=== PATIENT | female | born 1985 | race Caucasian/White ===

== ENCOUNTER 2017-05-30 14:00 | Emergency (ER) | payer BC ==
--- NOTE | 2017-05-30 14:42 | UC ---
Throat Pain/Nasal Zacarias HPI - HPI Summary HPI Summary: son with strep throat she has had nausea and sore thoat that is getting worse for 3 days - History of Current Complaint Chief Complaint: UCRespiratory Stated Complaint: SORE THROAT Time Seen by Provider: 05/30/17 14:31 Hx Obtained From: Patient Hx Last Menstrual Period: Discontinued Depo 10/2015 ?: No Onset/Duration: Sudden Onset, Lasting Days - 3, Still Present Severity: Moderate Pain Intensity: 6 Pain Scale Used: 0-10 Numeric Cough: None - Allergies/Home Medications Allergies/Adverse Reactions: Allergies Allergy/AdvReac Type Severity Reaction Status Date / Time Penicillins Allergy Rash Verified 05/30/17 14:51 Home Medications: Home Medications Ibuprofen TAB* [Advil TAB*] 600 mg PO Q6H PRN 05/30/17 [History Confirmed ] Levothyroxine TAB* [Synthroid TAB*] 25 mcg PO 0800 05/30/17 [History Confirmed 05/30/17] PMH/Surg Hx/FS Hx/Imm Hx Previously Healthy: Yes - Surgical History Surgical History: Yes Surgery Procedure, Year, and Place: C-Sections, 2008 2010, [place] - Family History Known Family History: Positive: None - Social History Occupation: Employed Full-time Lives: With Family Alcohol Use: Occasionally Substance Use Type: None Smoking Status (MU): Never Smoked Tobacco - Immunization History Most Recent Influenza Vaccination: December 2015 Review of Systems Constitutional: Chills, Fatigue Skin: Negative Eyes: Negative ENT: Sore Throat Respiratory: Negative Cardiovascular: Negative Gastrointestinal: Negative Genitourinary: Negative Motor: Negative Neurovascular: Negative Musculoskeletal: Negative Neurological: Negative Psychological: Negative All Other Systems Reviewed And Are Negative: Yes Physical Exam Triage Information Reviewed: Yes Appearance: Well-Appearing, No Pain Distress, Well-Nourished Vital Signs Reviewed: Yes Eye Exam: Normal Eyes: Positive: Conjunctiva Clear ENT Exam: Normal ENT: Positive: Normal ENT inspection, Hearing grossly normal, Pharyngeal erythema, TMs normal, Tonsillar swelling, Tonsillar exudate. Negative: Nasal congestion, Nasal drainage, Trismus, Muffled/hoarse voice Dental Exam: Normal Neck exam: Normal Neck: Positive: Supple, Nontender, No Lymphadenopathy Respiratory Exam: Normal Respiratory: Positive: Chest non-tender, Lungs clear, Normal breath sounds, No respiratory distress, No accessory muscle use Cardiovascular Exam: Normal Cardiovascular: Positive: RRR, No Murmur, Pulses Normal, Brisk Capillary Refill Musculoskeletal Exam: Normal Musculoskeletal: Positive: Strength Intact, ROM Intact, No Edema Neurological Exam: Normal Neurological: Positive: Alert, Muscle Tone Normal Psychological Exam: Normal Skin Exam: Normal Throat Pain/Nasal Course/Dx - Course Assessment/Plan: Zithromax,tylenol, ibuprofen increase fluids follow with pcp - Differential Dx/Diagnosis Differential Diagnosis/HQI/PQRI: Peritonsillar Abscess, Pharyngitis, Sinusitis, URI Provider Diagnoses: Strep pharyngitis Discharge - Discharge Plan Condition: Stable Disposition: HOME Prescriptions: Azithromycin TAB* [Zithromax TAB (Z-ADAM) 250 mg #6 tabs] 2 tab PO DAILY #10 Patient Education Materials: Azithromycin (By mouth), Strep Throat (ED) Referrals: Gertrude Falcon MD [Primary Care Provider] - If Needed
[2017-05-30 14:57] VITALS: BP 105/59
== END 2017-05-30 15:00 | disposition home or self-care (01) ==
LOC: UCCORT 14:00
DX: J02.0 Streptococcal pharyngitis (principal); Z88.0 Allergy status to penicillin
CPT/HCPCS: 99212; G0463

== ENCOUNTER 2018-09-01 14:45 | Inpatient (IN) | payer BC ==
--- OUTSIDE RECORDS SUMMARY | 2018-09-01 15:01 | XMS REPORT ---
:1985 External Reference #:[id number] Author Organization [employer] Address [address] [place] [address] Phone [phone] Care Team Providers Name Role Phone Alisa Jones NP Primary Care Physician Unavailable Payers Type Date Identification Numbers Payment Provider Subscriber Health Maintenance Policy Number: [facility] Ana Aldana [facility] (O) [id number] PayID: [id number] [place] [id number] Problems Date Description Provider Status Onset: 08/18/2018 Open wound of knee and/or leg and/or Vero York M.D. Active ankle Family History Date Family Member(s) Problem(s) Comments General Hypertension General Cancer Social History Type Date Description Comments Lives With Spouse Occupation [employer] Use Currently consumes alcohol 1-2 drinks/week Smoking Patient has never smoked Exercise Type/Frequency Exercises regularly Allergies, Adverse Reactions, Alerts Date Description Reaction Status Severity Comments 08/18/2018 Penicillin active Medications Medication Date Status Form Strength Qnty SIG Indications Ordering Provider Levothyroxine Active Tablets 50mcg 1 by Unknown Sodium 00 mouth every day Vital Signs Date Vital Result Comment 08/18/2018 Height 64 inches 5'4" Weight 202.00 lb Heart Rate 72 /min BP Systolic 134 mmHg BP Diastolic 76 mmHg BMI (Body Mass Index) 34.7 kg/m2 Results Description No Information Procedures Description No Information Plan of Care Future Appointment(s):09/15/2018 10:45 am - Vero York M.D. at [facility].09/02/2018 8:00 am - Vero York M.D. [facility]2018 - Vero York M.D.M25.561 Pain in right kneeNew Xrays:MRI Knee Right W/OFollow up:Follow up: 10-14 days [id number] Ganglion , right kneeS81.001A Unspecified open wound, right knee, initial encounter
--- OUTSIDE RECORDS SUMMARY | 2018-09-01 15:01 | XMS REPORT ---
:1985 External Reference #:[id number] Author Organization [employer] Address [address] [place] [address] Phone [phone] Care Team Providers Name Role Phone Alisa Jones NP Primary Care Physician Unavailable Payers Type Date Identification Numbers Payment Provider Subscriber Health Maintenance Policy Number: [facility] Ana Aldana [facility] (O) [id number] PayID: [id number] [place] [address] Problems Date Description Provider Status Onset: 08/18/2018 Open wound of knee and/or leg and/or Vero York M.D. Active ankle Family History Date Family Member(s) Problem(s) Comments General Hypertension General Cancer Social History Type Date Description Comments Lives With Spouse Occupation [employer] Use Currently consumes alcohol 1-2 [...] Vero York M.D. at [facility].09/02/2018 8:00 am - Vero York M.D. at [facility]/18/2018 - Vero York M.D.M25.561 Pain in right kneeNew Xrays:MRI Knee Right W/OFollow up:Follow up: 10-14 days [id number] Ganglion , right kneeS81.001A Unspecified open wound, right knee, initial encounter
[2018-09-01] MEDS ORDERED: Ondansetron ODT TAB* 4 MG PO PRN (15:20)
[2018-09-01] MEDS ORDERED: diPHENhydraMINE IV* 50 MG/ML 1 ml VIAL (BENADRYL) IV PRN (15:20)
[2018-09-01] MEDS ORDERED: Docusate CAP* 100 MG PO PRN (15:20)
[2018-09-01] MEDS ORDERED: diPHENhydraMINE PO* 25 MG PO PRN (15:20)
[2018-09-01] MEDS ORDERED: oxyCODONE/Acetamin 5/325 MG* TAB PO PRN (15:20)
[2018-09-01] MEDS ORDERED: Magnesium Hydroxide LIQ* 30 ML UDC PO PRN (15:20)
[2018-09-01] MEDS ORDERED: Ondansetron INJ* 2 MG/ML VIAL IV PRN (15:20)
[2018-09-01] MEDS ORDERED: LORazepam TAB(*) 1 MG PO ONE (15:34)
[2018-09-01] MEDS ORDERED: Acetaminophen TAB* 325 MG ONE (15:52)
[2018-09-01] MEDS: Acetaminophen TAB* 325 MG PO PRN ×2 (15:55→21:14)
[2018-09-01 16:52] LABS: ABS Basophils 0.1 10^3/ul (0-0.2); ABS Eosinophils 0.1 10^3/ul (0-0.6); ABS Monocytes 0.7 10^3/ul (0-0.8); ABS Neutrophils 9.3 10^3/ul (1.5-7.7); ABS Nucleated RBC 0 10^3/ul; Eosinophil % 0.8 % (0-6); Hematocrit 41 % (35-47); Hemoglobin 14.3 g/dl (12.0-16.0); Lymphocyte % 16.5 % (25-47); Mean Corpuscular HGB Conc 35 g/dl (31-36); Mean Corpuscular Hemoglobin 31 pg (27-31); Mean Corpuscular Volume 89 fL (80-97); Mean Platelet Volume 7.7 um3 (7.4-10.4); Nucleated Red Blood Cells % 0; Platelet Count 253 10^3/ul (150-450); Red Blood Count 4.59 10^6/ul (4.00-5.40); Red Cell Distribution Width 13 % (10.5-15); White Blood Count 12.2 10^3/ul (3.5-10.8)
[2018-09-01] MEDS ORDERED: Heparin VIAL(*) 5000 UNITS/ML VIAL (FIVE THOUSAND) SUBCUT SCH (21:00)
--- NOTE | 2018-09-01 21:20 | HP ---
HISTORY AND PHYSICAL: DATE OF ADMISSION: 09/01/18 CHIEF COMPLAINT/ADMISSION DIAGNOSIS: Right knee infection. HISTORY OF PRESENT ILLNESS: Ms. Aldana is a 33-year-old female with a complex history of right knee pain. She has had pain for over 7 years. In 2014 , she had an arthroscopy and continued to have pain with a cyst by her report. One year ago, she had the cyst surgically removed in an orthopedic [place] office outpatient setting. For the last year, she has had intermittent drainage from the incision that never healed. She continued to have swelling and pain along the anterolateral joint line. I saw her in the office on . I communicated to her that I felt she had an infected right knee joint due to her history and the open wound. Despite my best medical recommendation, she declined a hospital admission and arthroscopy washout with ganglion cyst excision. She is scheduled for this surgery tomorrow morning on 09/02/18. Today, she reports she felt fever and had increased pain in the knee. She has had recent drainage from the knee and presented to [facility] Emergency Room at my urging. PAST MEDICAL HISTORY: Hypothyroidism, above mentioned right knee cyst with open wound and chronic infection. PAST SURGICAL HISTORY: Right knee arthroscopy in 2014, right knee ganglion excision in 2017, x2. FAMILY HISTORY: Maternal cancer and hypertension. SOCIAL HISTORY: The patient works in the [employer] department. She lives with her . No tobacco or recreational drug use. There has been no alcohol use. Normally very active, right-hand dominant. REVIEW OF SYSTEMS: Fourteen systems are reviewed with the patient today, positive for right knee pain, right knee drainage, right knee mass, chronic back pain. Positive for recent fever, but no documentation of this. Negative for chills, chest pain, shortness of breath, nausea or vomiting, headache, or dizziness. Otherwise, review of systems is negative or not relevant. PHYSICAL EXAMINATION GENERAL: The patient is a well-nourished female who is in obvious distress. She is crying and upset. Alert and oriented x3. Gait: The patient's gait is not assessed. Balance: Not assessed. Coordination normal. VITAL SIGNS: Temperature of 98.5, pulse 96, blood pressure 133/97, respiratory rate 16. HEENT: Atraumatic, normocephalic. Pupils equal and reactive to light. CHEST: Lungs clear to auscultation in all lung [place]. No wheezes, rales, or rhonchi. HEART: S1 and S2. No murmurs, rubs, or gallops. ABDOMEN: Soft, nontender, nondistended. Bowel sounds in 4 quadrants. EXTREMITIES: Right lower extremity: The patient's skin has a small red wound that appears to be recently open along the anterolateral joint line. No surrounding cellulitis. No active drainage. The knee is not warm or red. There is a moderate effusion at the knee joint 5 to 110 degrees, flexion at the knee with some mild pain. Large soft mass along the anterolateral joint line. No varus or valgus instability. Positive Apley's. Distally neurovascularly intact without significant edema. RADIOGRAPHS: MRI of the right knee from 08/30/18 is reviewed today. This shows a multilocular ganglion along the entire infrapatellar fat pad region connecting through a rent in the medial patellar retinaculum to the skin. No obvious bone marrow edema. No obvious meniscal tear. No suspicious osseous lesions. ASSESSMENT AND PLAN: Ms. Aldana is a 33-year-old female with one year of a draining open wound that likely communicates to a ganglion intraarticular cyst. This cyst now communicates through the joint to the skin. Therefore, by definition, she has been exposed to bacteria and likely has a chronic infection in this knee. The patient presents today, but does not have any documented fevers and does not meet sepsis criteria at the current time. She is mildly tachycardic, but extremely anxious. We plan to admit the patient for observation. We will monitor her for any fevers, chills or change in the appearance of the knee. We have her scheduled for an early childhood director 09/02/18 arthroscopic I and D with open excision of the cyst. We will hold on the antibiotics for now in order to obtain the best cultures possible tomorrow. We will then keep her postoperatively tentatively for 48 to 72 hours for IV antibiotics. Today, we will get blood cultures. She will be given an antianxiety drug and some pain pills. She will be n.p.o. after midnight for surgery. [id number]/[facility] #: [id number] [facility]OSPITALPalak
[2018-09-01] MEDS: LORazepam TAB(*) 1 MG PO PRN (21:51)
[2018-09-02] MEDS: LORazepam TAB(*) 1 MG PO PRN (05:49)
[2018-09-02 06:16] LABS: ABS Basophils 0.1 10^3/ul (0-0.2); ABS Eosinophils 0.2 10^3/ul (0-0.6); ABS Lymphocytes 2.9 10^3/ul (1.0-4.8); ABS Monocytes 0.8 10^3/ul (0-0.8); ABS Neutrophils 5.5 10^3/ul (1.5-7.7); ABS Nucleated RBC 0 10^3/ul; Eosinophil % 2.5 % (0-6); Hematocrit 42 % (35-47); Hemoglobin 14.7 g/dl (12.0-16.0); Lymphocyte % 30.6 % (25-47); Mean Corpuscular HGB Conc 35 g/dl (31-36); Mean Corpuscular Hemoglobin 32 pg (27-31); Mean Corpuscular Volume 91 fL (80-97); Mean Platelet Volume 7.6 um3 (7.4-10.4); Nucleated Red Blood Cells % 0.1; Platelet Count 250 10^3/ul (150-450); Red Cell Distribution Width 13 % (10.5-15); White Blood Count 9.5 10^3/ul (3.5-10.8)
[2018-09-02 06:29] LABS: INR 0.94 (0.77-1.02)
[2018-09-02 06:41] LABS: EGFR Non-African American 106.2 (>60)
[2018-09-02] MEDS: Morphine VIAL* 4 MG/ML VIAL (1 ml vial) IV PRN ×2 (07:10→23:26)
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
[2018-09-02] MEDS ORDERED: oxyCODONE/Acetamin 5/325 MG* TAB PO PRN (07:51)
[2018-09-02] MEDS ORDERED: DiMENhydriNATE IV* 50 MG/ML VIAL IV PUSH PRN (07:51)
[2018-09-02] MEDS ORDERED: HYDROmorphone INJ1* 1 MG/ML SYRINGE IV PRN (07:51)
[2018-09-02] MEDS ORDERED: Naloxone* 0.4 MG/ML 1 ML VIAL IV PRN (07:51)
[2018-09-02] MEDS ORDERED: Scopolamine 1.5 mg* PATCH TRANSDERM PRN (07:51)
[2018-09-02] MEDS ORDERED: fentaNYL* 50 MCG/ML 2 ML VIAL (100 MCG VIAL) IV PRN (07:51)
[2018-09-02] MEDS ORDERED: Ondansetron INJ* 2 MG/ML VIAL IV PRN (07:51)
[2018-09-02] MEDS: oxyCODONE/Acetamin 5/325 MG* TAB PO PRN ×3 (10:11→21:23)
[2018-09-02] MEDS: Levothyroxine TAB* 50 MCG TAB PO SCH (10:11)
[2018-09-02] MEDS: Vancomycin(*) 1,000 MG in NS 0.9% 250 ML* 250 ML IVPB SCH ×2 (11:10→23:16)
--- NOTE | 2018-09-02 16:23 | CONS ---
CONSULTATION REPORT: DATE OF CONSULT: 09/02/18 REQUESTING PHYSICIAN: Dr. York CONSULTING SERVICE: Infectious Disease. REASON FOR CONSULT: Right knee infection. IMPRESSION: 1. Right knee infection in the setting of a chronic multilocular ganglion right knee cyst, communicating with the joint space, draining intermittently for the last 3 or 4 months. Has been on oral antibiotics an outpatient for sinusitis. Cultures here are pending. 2. PENICILLIN ALLERGY caused hives as a child. 3. Obesity. 4. Anxiety. RECOMMENDATION: Agree with vancomycin goal trough 10 to 15 while we await culture results, which may be affected by her recent oral antibiotic treatment. HISTORY OF PRESENT ILLNESS: A 33-year-old woman who has had issues with the right knee for a number of years, had an arthroscopy about 3 years ago, and had a complex ganglion cyst, which was drained partially in the outpatient setting end of 2016. She then sounds like had a corticosteroid injection 3 or 4 months ago and ever since then is having intermittent clear drainage with occasional redness surrounded. She was taking oral antibiotics early in the week for sinusitis, which has been off for about 3 or [address] York, had an MRI, that showed ganglion but no joint space effusion. Dr. York took her to the operating room this morning and excised the cyst. Operative studies are pending. She has no fevers, chills, or sweats. She feels well. PAST MEDICAL HISTORY: 1. Right knee arthroscopy, 2014. 2. Hypothyroidism. 3. Status post x2. 4. Obesity. MEDICATIONS: 1. Vancomycin 1 g every 12 hours. 2. Scopolamine/oxycodone as needed. 3. Morphine as needed. 4. Ativan. 5. Docusate. 6. Enoxaparin. ALLERGIES: PENICILLIN caused hives as a child. FAMILY HISTORY: Mother had cancer and hypertension. SOCIAL HISTORY: She lives in [place]. 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 Lives with her . She is a nonsmoker. No injection drugs. REVIEW OF SYSTEMS: All negative to the 14-point review of systems except as noted above in the history of present illness. PHYSICAL EXAM: Vital Signs: Temperature is 37, heart rate 90, respiratory rate 16, and blood pressure 118/77, oxygen saturation 99% on room air. General : She is awake, not in distress. Neurologic: She is oriented x3, follows all commands. HEENT: There is no conjunctival hemorrhage. Oropharynx without lesions. Neck is supple without mass. Heart: Regular rate and rhythm without murmurs, rubs, or gallops. Lungs are clear to auscultation bilaterally. Abdomen: Soft, nontender, and nondistended. There are bowel sounds present. Skin: There is no rash or splinter hemorrhage. Musculoskeletal: There is no spine tenderness to palpation or joint synovitis. Right knee has bandage and has Cryo/Cuff. LABORATORY DATA: White blood cell count 9 down from 12, hemoglobin is 14. C- reactive protein is 0. HCG is 0. Please see impressions and recommendations outlined above. Thanks for asking me to see Ms. Aldana in consultation. [id number]/[facility] #: [id number] LC
[2018-09-02] MEDS: Potassium Chlor TAB* 20 MEQ TAB.ER PO SCH (21:23)
--- NOTE | 2018-09-03 01:25 | OP ---
DATE OF OPERATION: 09/02/18 - ROOM #332 DATE OF : 83 ATTENDING SURGEON: Vero York MD CAD DRAFTSMAN: LOU Stanton. Ms. Katz did help throughout the procedure with preparation of the leg, wound retraction, manipulation of the knee, and wound closure. ANESTHESIOLOGIST: Dr. Garibay. ANESTHESIA: General. 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 OPERATIVE PROCEDURE: Right knee arthroscopy with partial lateral meniscectomy and patellofemoral chondroplasty, open excision of intraarticular ganglion cyst. BRIEF HISTORY/INDICATION: Ms. Aldana is a 33-year-old female with one year of a chronic open wound which communicates with an intraarticular ganglion. At times, she had clear fluid, at times gelatinous fluid drained from the cyst. She denies fevers, chills, or significant effusion in the knee. I saw her in July and urged her to go immediately to the hospital so we could washout her knee. I explained that I felt she was infected and should have the chronic wound excised and excision of the associated ganglion. She refused immediate treatment, but did schedule for today on 09/02/18. She presented to the emergency room last night with increased drainage, pain, and swelling. Informed consent was obtained from the patient. She understood the risks of the procedure included, but were not limited to, bleeding, continued infection, damage to nearby structures, continued pain, need for further surgery, need for further washout, retear of the meniscus, stroke, heart attack, blood clot, and . She wished to proceed. INTRAOPERATIVE FINDINGS: Intraoperatively, the patient was noted to have no obvious purulence in the knee joints or drainage from the open wound. She did have a small open wound along the anterolateral joint line, which communicates directly with an intraarticular ganglion. She had an intraarticular ganglion cyst with multiple loculations. She had a radial tear in the medial meniscus. She had some grade 3 Outerbridge cartilage changes in the patellofemoral compartment with cartilage flapping and she had grade 2 and 3 Outerbridge cartilage changes in the medial compartment. SPECIMENS: Multiple culture swabs as well as intraarticular fluid were sent for cultures and sensitivities. The open wound was sent for cultures and sensitivities. The ganglion cyst was sent to Pathology. ESTIMATED BLOOD LOSS: 50 cc. COMPLICATIONS: None. DESCRIPTION OF PROCEDURE: Ms. Aldana was identified in the preanesthesia unit. Her right lower extremity was marked as a correct operative side. Informed consent was signed and placed in the chart. The patient was taken to the operating room and placed under general anesthesia. The right lower extremity was prepped and draped in the usual sterile fashion. Preop time-out was made to correctly identify the patient's side and site. Appropriate perioperative antibiotics were given. An 18-gauge needle was placed in the knee joint. Attempt to aspirate fluid was not successful. Therefore, 10 cc of sterile saline was injected and then aspirated in order to send the fluid for cultures and sensitivities. An anterolateral portal incision was made and carried down through the capsule. Immediate drainage of clear joint fluid and gelatinous cystic material was collected and sent for cultures and sensitivities. There was no obvious purulence. Multiple culture swabs were obtained and sent for culture and sensitivity. Trocar was introduced. As soon as the light and water sources were turned on, there was immediate visualization of the suprapatellar pouch. Patellofemoral compartment showed some grade 3 Outerbridge cartilage changes and there was a cartilage flap along the medial patellar facet. There were grade 3 Outerbridge cartilage changes along the patellofemoral joint and the femoral trochlear groove as well. Medial gutter showed no loose body or plica. The medial compartment showed some grade 2 and 3 Outerbridge cartilage changes along the medial femoral condyle. A small radial tear in the white-red zone of the anteromedial meniscus. ACL and PCL appeared to be intact. Significant amount of soft tissue anteriorly that did resemble a ganglion cyst in the infrapatellar fat pad region. No extensive cartilage loss due to chronic infection. The knee was placed in a [id number] position. No obvious lateral meniscal tear. Minimal degenerative changes. Lateral gutter showed no loose body or plica. Under direct visualization, a medial portal incision was made. The knee was copiously irrigated with 9 L of sterile saline. Straight biter and shaver were used to clear some soft tissue from the anterior joint line and this was also collected for specimen. A straight biter and shaver were used to perform partial medial meniscectomy in the white-red zone. A smooth border of the meniscus was obtained. Radiofrequency ablation wand was then used to perform chondroplasty in the patellofemoral compartment. Cartilage flapping was carefully smoothed in a conservative fashion. At this time, the knee was additionally irrigated. All instruments were removed. The lateral portal incision was extended superiorly and inferiorly to a total length of 4 cm. Immediately, there was a multiloculated ganglion cyst that became visible. Tenotomies were used to dissect around the cyst and this was carefully excised. The chronic open wound portion of her skin was carefully ellipsed out using a 10-blade. Tourniquet was inflated for this portion of the procedure and total tourniquet time was 21 minutes. This wound directly communicated with the knee joint. Once again, sterile saline was used to irrigate the wound. It was felt that the vast majority of the ganglion cyst had been excised. There was hesitancy to dissect any further near the patellar tendon. The retinaculum and lateral edge of the patellar tendon were carefully reapproximated using interrupted 0 Vicryls. The rest of the incision was closed in a layered fashion using 0 and 2-0 Vicryls. Skin was closed using running 3-0 nylon suture. The other portal incision was closed using 3-0 nylon. Sterile Xeroform, 4x4s, and Webril were used to cover the incision. Babak wrap and cold pack were placed to over this. The patient's anesthesia was reversed without difficulty. She was taken to the PACU in stable condition. Intended weightbearing will be weightbearing as tolerated. Intended DVT prophylaxis will be Lovenox. Infectious Disease consult will be obtained. She is currently on vancomycin. We will await culture results. Due to the chronicity of the open wound and intraarticular communication, Dr. Duckworth of Infectious Disease has recommended a PICC line and 1 month of IV antibiotics. [id number]/[facility] #: [id number] [facility]OSPITALPalak
[2018-09-03] MEDS: oxyCODONE/Acetamin 5/325 MG* TAB PO PRN ×5 (04:20→20:40)
[2018-09-03] MEDS: Levothyroxine TAB* 50 MCG TAB PO SCH (08:19)
[2018-09-03] MEDS: Potassium Chlor TAB* 20 MEQ TAB.ER PO SCH ×2 (08:19→20:40)
[2018-09-03] MEDS: LORazepam TAB(*) 1 MG PO PRN ×2 (08:49→22:28)
[2018-09-03] MEDS: Vancomycin(*) 1,000 MG in NS 0.9% 250 ML* 250 ML IVPB SCH (11:51)
[2018-09-03] MEDS ORDERED: Enoxaparin(*) 40 MG/0.4 ML SYR SUBCUT SCH (12:00)
--- NOTE | 2018-09-03 12:03 | PN ---
Progress Note - Progress Note Date of Service: 09/03/18 SOAP: Subjective: 33 y/o female w chronic draining wound s/p arthroscopy with intraarticular ganglion cyst excision, washout by Dr. York 09/02/2018. Patient reports feeling well, mild knee pain controlled with medication, PICC line placed, tolerated well, no complaints. VSS, afebrile overnight. Objective: General- Well appearing, NAD, AO resting in bed comfortably. MSK- RLE- + DF/PF, DP 2+, negative homans sign, surgical dressing in place, no drainage, erythema noted around or on dressing. SITLT. Vital Signs Temp 98.7 F 09/03/18 08:09 Pulse 95 09/03/18 08:09 Resp 20 09/03/18 08:49 BP 152/30 09/03/18 08:09 Pulse Ox 98 09/03/18 08:09 Intake & Output 09/02/18 09/03/18 09/03/18 18:59 06:59 18:59 Intake Total 1813 2082 240 Output Total 600 1175 400 Balance 1213 907 -160 Intake: IV Fluids 650 47 CLINDAMYCIN 900MG 50 LR 600 47 IVPB 403 275 ABX - VANCOMYCIN 269 275 LR 134 Oral 760 1760 240 Output: Urine 600 1175 400 Assessment: Stable chronic draining wound s/p arthroscopy with intraarticular ganglion cyst excision, washout by Dr. York 09/02/2018. Plan: - DVT prophylaxis- lovenox - Continue PT/ OT - Follow up with Dr. York within 10-14 days - ID consult- PICC line placed, likely IV ABX x 1 month. Cultures currently no growth, however was on ABX prior to cultures being drawn. - post-op IV ABX - vanco running. - POssible D/C to home tomorrow pending IV ABX recs per Dr. Denyn. Microbiology 09/02/18 08:08 Anaerobic Culture - Preliminary Wound - Aspirate No Growth Day 1 Gram Stain - Final Wound Culture - Preliminary No Growth Day 1 09/02/18 08:08 Gram Stain - Final Body Fluid - Aspirate Body Fluid Culture - Preliminary No Growth Day 1 09/01/18 16:44 Aerobic Blood Culture - Preliminary Blood Venous No Growth Day 1 Anaerobic Blood Culture - Preliminary No Growth Day 1 10/03/18 16:36 Aerobic Blood Culture - Preliminary Blood Venous No Growth Day 1 Anaerobic Blood Culture - Preliminary No Growth Day 1
--- NOTE | 2018-09-03 15:06 | PN ---
Progress Note - Progress Note Date of Service: 09/03/18 SOAP: Subjective: CC: knee infection HPI: 33 year old woman with right knee complex ganglion cyst with chronic drainage s/p I&D with arthroscopic washout of joint. No fever, rash or diarrhea. Mild right knee pain. Objective: Vital Signs Temp 36.7 C 09/03/18 11:50 Pulse 87 09/03/18 11:50 Resp 18 09/03/18 14:43 BP 125/65 09/03/18 11:50 Pulse Ox 97 09/03/18 11:50 Intake & Output 09/02/18 09/03/18 09/03/18 18:59 06:59 18:59 Intake Total 1813 2082 1561 Output Total 600 1175 800 Balance 1213 907 761 Intake: IV Fluids 650 47 271 ABX - VANCOMYCIN 271 CLINDAMYCIN 900MG 50 LR 600 47 IVPB 403 275 250 ABX - VANCOMYCIN 269 275 250 LR 134 Oral 760 1760 1040 Output: Urine 600 1175 800 Gen:awake, no distress HEENT: no thrush Heart:RRR no murmur Lungs:CTA BL Abd:+BS NTND soft Skin: no rash MSK: no spine tenderness, right knee wrappes Microbiology 09/02/18 08:08 Anaerobic Culture - Preliminary Wound - Aspirate No Growth Day 1 Gram Stain - Final Wound Culture - Preliminary No Growth Day 1 09/02/18 08:08 Gram Stain - Final Body Fluid - Aspirate Body Fluid Culture - Preliminary No Growth Day 1 09/01/18 16:44 Aerobic Blood Culture - Preliminary Blood Venous No Growth Day 1 Anaerobic Blood Culture - Preliminary No Growth Day 1 09/01/18 16:36 Aerobic Blood Culture - Preliminary Blood Venous No Growth Day 1 Anaerobic Blood Culture - Preliminary No Growth Day 1 Assessment: 1. infected ganglion cyst s/p I&D with communication to joint space 2. pcn alleergy, hives as a baby Plan: 1. abx day 3, will change to ceftriaxone 1 gm iv daily for 14 more days with weekly cbc, cmp, crp 35 minutes floor time >50% face to face in counseling with patient and mother about antibiotic plans and side effect monitoring
[2018-09-03] MEDS: cefTRIAXone(*) 1 GM in NS 0.9% 50 ML* 50 ML IVPB SCH (15:07)
[2018-09-03] MEDS: Morphine VIAL* 4 MG/ML VIAL (1 ml vial) IV PRN (17:49)
[2018-09-04] MEDS: oxyCODONE/Acetamin 5/325 MG* TAB PO PRN ×3 (00:40→10:51)
[2018-09-04 07:31] VITALS: BP 113/67
[2018-09-04] MEDS: Levothyroxine TAB* 50 MCG TAB PO SCH (08:04)
--- NOTE | 2018-09-04 08:55 | PN ---
Progress Note - Progress Note Date of Service: 09/04/18 SOAP: Subjective: [Pt was seen this morning lying in bed. States she is feeling better and is ready to go home. ] Objective: [General: A&Ox3, NAD MSK, RLE: Dressing changed, incisions are c/d/i, no drainage or purulence. + df/ pf. Sensation intact distally. ] Vital Signs Temp 98.6 F 09/04/18 07:31 Pulse 85 09/04/18 07:31 Resp 18 09/04/18 08:23 BP 113/67 09/04/18 07:31 Pulse Ox 98 09/04/18 07:31 Intake & Output 09/03/18 09/04/18 09/04/18 18:59 06:59 18:59 Intake Total 1561 1310 Output Total 1050 400 Balance 511 910 Intake: IV Fluids 271 ABX - VANCOMYCIN 271 IVPB 250 ABX - VANCOMYCIN 250 Oral 1040 1310 Output: Urine 1050 400 Assessment: [S/P Right knee washout ] Plan: [- Continue with ceftriaxone 1 gm iv daily for 14 more days with weekly cbc, cmp , crp - ASA 325 daily for anticoagulation - follow up with Dr. York in 10 - 14 days ]
[2018-09-04] MEDS: Potassium Chlor TAB* 20 MEQ TAB.ER PO SCH (09:33)
[2018-09-04] MEDS: cefTRIAXone(*) 1 GM in NS 0.9% 50 ML* 50 ML IVPB SCH (10:02)
[2018-09-05] MEDS ORDERED: Scopolamine PATCH Remove* 1 NOTE MISC PATCH OFF SCH (08:00)
== END 2018-09-04 11:10 | disposition home or self-care (01) | DRG 711 ==
LOC: ED 14:45 → SSU 15:37
PROVIDERS: ADMIT Orthopaedic Surgery Adult Reconstructive Orthopaedic Surgery; ATTEND Orthopaedic Surgery Adult Reconstructive Orthopaedic Surgery
PROC: 05HN33Z Insertion of Infusion Device into Left Internal Jugular Vein, Percutaneous Approach (ICD-10-PCS; 2018-09-02)
PROC: 0SBC0ZZ Excision of Right Knee Joint, Open Approach (ICD-10-PCS; principal; 2018-09-02 07:30)
DX: T81.49XA Infection following a procedure, other surgical site, initial encounter (principal); B99.9 Unspecified infectious disease; M25.161 Fistula, right knee; M67.461 Ganglion, right knee; M23.206 Derangement of unspecified meniscus due to old tear or injury, right knee; M17.11 Unilateral primary osteoarthritis, right knee; E66.9 Obesity, unspecified; F41.9 Anxiety disorder, unspecified; E03.9 Hypothyroidism, unspecified; Z68.36 Body mass index [BMI] 36.0-36.9, adult; Z88.0 Allergy status to penicillin; Z80.9 Family history of malignant neoplasm, unspecified; Z82.49 Family history of ischemic heart disease and other diseases of the circulatory system
CPT/HCPCS: 36415; 80048; 80053; 81025; 84702; 85025; 85610; 85652; 86140; 87040; 87070; 87073; 87205; 88304; 90686; 99284; A9270-GY; J0696; J1644; J1650; J2270; J2405; J3370

== ENCOUNTER 2019-04-05 18:35 | Emergency (ER) | payer BC ==
[2019-04-05 19:02] VITALS: BP 137/83
--- NOTE | 2019-04-05 19:17 | UC ---
Shoulder Pain HPI - HPI Summary HPI Summary: Pt presents with c/o gradual onset of pain and stiffness on right side upper back pain that radiates to right shoulder. Pt denies injury. She reports that she "slept funny " on right shoulder two nights ago, woke thismrning with right - History of Current Complaint Chief Complaint: UCBackPain Stated Complaint: RIGHT SHOULDER/NECK PAIN Time Seen by Provider: 04/05/19 19:14 Hx Obtained From: Patient Hx Last Menstrual Period: 03/30/19 ?: No Onset/Duration: Sudden Onset, Lasting Days Timing: Constant Severity Initially: Mild Severity Currently: Severe Location Of Pain: Is Discrete @ - right upper back, Radiates To - right shoulder Pain Intensity: 9 Character: Dull, Aching, Stiffness Aggravating Factor(s): Movement Alleviating Factor(s): Rest Associated Signs And Symptoms: Positive: Negative Related History: Dominant Hand Right - Risk Factors Non-Orthopedic Risk Factor: Negative DVT Risk Factors: Negative Septic Arthritis Risk Factor: Negative - Allergies/Home Medications Allergies/Adverse Reactions: Allergies Allergy/AdvReac Type Severity Reaction Status Date / Time Penicillins Allergy Severe Rash Verified 04/05/19 19:03 Seasonal Allergies Allergy Congestion Uncoded 04/05/19 19:03 PMH/Surg Hx/FS Hx/Imm Hx Previously Healthy: Yes Endocrine History: Thyroid Disease - Surgical History Surgical History: Yes Surgery Procedure, Year, and Place: C-Sections, 2009 2010, [place]. KNEE SCOPE RIGHT 2014, right knee surgery 08/2018 - Family History Known Family History: Positive: Cardiac Disease - Social History Occupation: Employed Full-time Lives: With Family Alcohol Use: Occasionally Substance Use Type: None Smoking Status (MU): Never Smoked Tobacco Have You Smoked in the Last Year: No - Immunization History Most Recent Influenza Vaccination: 09/03/18 Most Recent Pneumonia Vaccination: never Vaccination Up to Date: Yes Review of Systems All Other Systems Reviewed And Are Negative: Yes Constitutional: Positive: Negative Skin: Positive: Negative Eyes: Positive: Negative ENT: Positive: Negative Respiratory: Positive: Negative Cardiovascular: Positive: Negative Gastrointestinal: Positive: Negative Genitourinary: Positive: Negative Motor: Positive: Decreased ROM - right shoulder Neurovascular: Positive: Negative Musculoskeletal: Positive: Decreased ROM - right shoulder and upper back, Myalgia Neurological: Positive: Negative Psychological: Positive: Negative Is Patient Immunocompromised?: No Physical Exam Triage Information Reviewed: Yes Appearance: Pain Distress - with ROM Vital Signs: Initial Vital Signs Temp 97.6 F 04/05/19 18:56 Pulse 87 04/05/19 18:56 Resp 16 04/05/19 18:56 BP 137/83 04/05/19 18:56 Pulse Ox 97 04/05/19 18:56 Vital Signs Reviewed: Yes Eye Exam: Normal ENT Exam: Normal ENT: Positive: Hearing grossly normal Dental Exam: Normal Neck exam: Normal Respiratory: Positive: No respiratory distress Musculoskeletal: Positive: ROM Limited @ - right shoulder, Other: - trigger point tenderness right upper back Neurological Exam: Normal Psychological Exam: Normal Skin Exam: Normal Shoulder Course/Dx - Course Course Of Treatment: IStop reference: Reference #: [id number] - Differential Dx/Diagnosis Differential Diagnosis/HQI/PQRI: Other Provider Diagnosis: Muscle spasm, Shoulder pain Discharge - Sign-Out/Discharge Documenting (check all that apply): Patient Departure All imaging exams completed and their final reports reviewed: No Studies - Discharge Plan Condition: Stable Disposition: HOME Prescriptions: Cyclobenzaprine TAB* [Flexeril 10 MG TAB*] 10 mg PO Q8H PRN #15 tab PRN Reason: Pain predniSONE TAB* [Deltasone 20 MG TAB*] 20 mg PO DAILY #4 tab Patient Education Materials: Muscle Spasm (ED), Shoulder Pain (ED), Exercises for Shoulder Flexion and Extension (ED) Referrals: Alisa Jones NP [Primary Care Provider] - If Needed - Billing Disposition and Condition Condition: STABLE Disposition: Home
== END 2019-04-05 19:33 | disposition home or self-care (01) ==
LOC: UCCORT 18:35
DX: M62.830 Muscle spasm of back (principal); M25.511 Pain in right shoulder; J30.2 Other seasonal allergic rhinitis; E07.9 Disorder of thyroid, unspecified; Z88.0 Allergy status to penicillin
CPT/HCPCS: 99212; G0463